=== PATIENT | male | born 1980 | race Two or more races ===

== ENCOUNTER 2023-06-06 14:45 | Emergency (ER) | payer MEDICARE ==
[~2023-06-06] VITALS: Ht 180.3 cm; Wt 91.0 kg
[2023-06-06 14:49] VITALS: BP 143/93; PULSE 111; RESP 16; TEMP 97.6; O2SAT 96
[2023-06-06] MEDS ORDERED: OLANZAPINE 5MG TABLET ODT PO ONE (15:15)
[2023-06-06] MEDS ORDERED: LORAZEPAM 1MG TABLET PO ONE (15:15)
[2023-06-06 15:31] LABS: HEMATOCRIT. 45.1 % (42.0-52.0); HEMOGLOBIN. 15.2 g/dL (14.0-18.0); MEAN CORPUSCULAR HEMOGLOBIN 30.2 pg (28.0-32.0); MEAN CORPUSCULAR HGB CONC 33.7 g/dL (31.0-37.0); MEAN CORPUSCULAR VOLUME 89.6 fL (80.0-94.0); MEAN PLATELET VOLUME 7.9 fl (7.4-10.4); PLATELET 170 x1000/uL (130-400); RED BLOOD CELL COUNT 5.03 mill/uL (4.7-6.1); RED CELL DISTRIBUTION WIDTH 15.1 % (11.6-14.6); WHITE BLOOD COUNT 11.1 x1000/uL (4.5-11.0)
[2023-06-06 15:34] LABS: DIFFERENTIAL COMMENT 1
[2023-06-06 15:41] LABS: CHLORIDE 106 mEq/L (98-107); INDEX HEMOLYSI 2 (1-3); INDEX ICTERIC 1 (1-4); INDEX LIPEMIC 1 (1-3); POTASSIUM 4.1 mEq/L (3.5-5.1); SODIUM 135 mEq/L (136-145)
[2023-06-06] MEDS ORDERED: BUPR150T3 MT (15:44)
[2023-06-06] MEDS ORDERED: OLAN15TA3 MT (15:44)
[2023-06-06 15:46] LABS: ACETAMINOPHEN <2 ug/mL ug/mL (10-30); ALANINE AMINOTRANSFERASE 28 IU/L (13-61); ALBUMIN 4.6 g/dL (3.4-5.0); ASPARTATE AMINOTRANSFERASE 53 IU/L (15-37); BILIRUBIN TOTAL 1.5 mg/dL (0.1-1.0); CALCIUM 9.7 mg/dL (8.5-10.1); CARBON DIOXIDE 20 mEq/L (21-32); CREATININE 1.4 mg/dL (0.6-1.3); ETHANOL BLOOD < 10 mg/dL (-10); GLUCOSE 91 mg/dL (70-105); PROTEIN TOTAL 7.7 g/dL (6.0-8.3); UREA NITROGEN BLOOD 35 mg/dL (7-21)
[2023-06-06 16:59] LABS: PLATELET ESTIMATE NORMAL
== END 2023-06-06 16:36 | disposition home or self-care (01) ==
LOC: ER 14:45
DX: F20.9 Schizophrenia, unspecified (principal); F31.9 Bipolar disorder, unspecified; Z79.899 Other long term (current) drug therapy
CPT/HCPCS: 36415; 80053; 80307; 80320; 80329; 85025; 99283; G0480